=== PATIENT | male | born 1980 | race Caucasian/White ===

== ENCOUNTER 2016-09-29 14:27 | Emergency (ER) | payer SELFPAY ==
[~2016-09-29] VITALS: Ht 177.8 cm; Wt 81.5 kg
[~2016-09-29 14:27] MED LIST: DARV PO; Z.0.NO CURRENT MEDS
[2016-09-29 14:29] VITALS: BP 128/87; PULSE 80; RESP 16; TEMP 98.5; O2SAT 97
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
[2016-09-29] MEDS ORDERED: oxyCODONE/ACETAMINOPHEN 5 MG/325 MG TAB PO ONE (15:45)
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
[2016-09-29] MEDS ORDERED: PERC5TAB12 PO (16:41)
[2016-09-29] MEDS ORDERED: IBUP800T23 PO (16:43)
[2016-09-29 17:17] VITALS: RESP 16
== END 2016-09-29 17:31 | disposition home or self-care (01) ==
LOC: NEPB 14:27
DX: S69.91XA Unspecified injury of right wrist, hand and finger(s), initial encounter (principal); F17.210 Nicotine dependence, cigarettes, uncomplicated; W22.8XXA Striking against or struck by other objects, initial encounter; Y93.55 Activity, bike riding; Y99.9 Unspecified external cause status
CPT/HCPCS: 73130; 99283

== ENCOUNTER 2017-05-17 13:37 | Emergency (ER) | payer SELFPAY ==
[~2017-05-17] VITALS: Ht 172.7 cm; Wt 79.5 kg
[~2017-05-17 13:37] MED LIST changes: -DARV PO; +IBUP800T23 PO; +PERC5TAB12 PO; -Z.0.NO CURRENT MEDS
[2017-05-17 13:39] VITALS: BP 129/85; PULSE 79; RESP 15; TEMP 98.2; O2SAT 98
--- NOTE | 2017-05-17 13:59 | PD ---
HPI Chief Complaint: Injury Time Seen by Provider: 13:58 Travel History International Travel<30 days: No Contact w/Intl Traveler<30days: No Traveled to known affect area: No History of Present Illness HPI 37-year-old male presents to the emergency department with complaint of left ankle pain 2 days after injuring it while skateboarding. He thought it was sprained and sees been elevating it, icing it, taking ibuprofen for symptom management. He even tried taking a warm Epson salt bath. Denies paresthesias, loss of sensation to the affected extremity. Reports swelling and bruising to the ankle and foot. Symptoms are moderate in severity. Has no other medical complaints. No other modifying factors or associated signs and symptoms. PFSH Past Medical History Blood Disorders: No Heart Rhythm Problems: Yes ("fast heart") Cancer: No Cardiovascular Problems: Yes Endocrine: No Immune Disorder: No Musculoskeletal: No Neurologic: No Psychiatric: No Respiratory: No Social History Alcohol Use: Yes (OCCASIONALLY) Tobacco Use: Yes (10 CIGS A DAY FOR SEVERAL MONTHS) Substance Use: Yes (pt stated marijuana & did not comment regarding cocaine) Allergies-Medications (Allergen,Severity, Reaction): Coded Allergies: No Known Allergies (Verified , 05/17/17) Reported Meds & Prescriptions Reported Meds & Active Scripts Active Ibuprofen 800 Mg Tab 800 Mg PO Q6HR PRN Percocet (Oxycodone-Acetaminophen) 5-325 mg Tab 1-2 Tab PO Q6H PRN Review of Systems Except as stated in HPI: all other systems reviewed are Neg Physical Exam Narrative GENERAL: Well-nourished, well-developed male patient, in no acute distress SKIN: Warm and dry. HEAD: Atraumatic. Normocephalic. EYES: Pupils equal and round. No scleral icterus. No injection or drainage. ENT: Mucosa pink and moist. Airway patent. NECK: Trachea midline. CARDIOVASCULAR: Regular rate. RESPIRATORY: No accessory muscle use. GASTROINTESTINAL: Flat. MUSCULOSKELETAL: Left ankle with point tenderness to the lateral and medial malleolar zone with palpation; with edema and ecchymosis; no obvious deformities. Dorsal sole aspect of left foot is with ecchymosis; 2+ pedal pulse ; sensory intact. Left Lower extremity is supple and nontense with 2+ pedal pulse and sensory intact. No obvious deformities. No clubbing. No cyanosis. NEUROLOGICAL: Awake and alert. Oriented 3. No obvious cranial nerve deficits. Motor grossly within normal limits. Normal speech. PSYCHIATRIC: Appropriate mood and affect; insight and judgment normal. Data Data Last Documented VS Vital Signs Date Time Temp Pulse Resp B/P (MAP) Pulse Ox O2 Delivery O2 Flow Rate FiO2 05/17/17 13:39 98.2 79 15 129/85 (100) 98 Orders Orders Ankle, Complete ([id number]) (05/17/17 13:57) Foot, Complete ([id number]) (05/17/17 13:57) Crutches (05/17/17 13:57) Ibuprofen (Motrin) (05/17/17 14:00) MDM Medical Decision Making Medical Screen Exam Complete: Yes Emergency Medical Condition: Yes Medical Record Reviewed: Yes Differential Diagnosis Fracture, sprain, contusion Narrative Course 37-year-old male with left ankle injury. Left foot has extensive ecchymosis to the dorsal aspects I will obtain an x-ray to rule out acute findings of that also. Ibuprofen administered in the ER. Left foot and ankle x-ray ordered. 1508: Left ankle x-ray concludes: Minimally displaced spiral fracture of the distal fibula. 1520: Left foot x-ray with no acute findings. Call placed to orthopedics. 1539: With Dr. Canales, orthopedic, and he recommended splint, crutches, nonweightbearing, RICE and to follow-up in his office in 1-2 weeks. Uribe splint placed. Crutches provided for support. Discussed care with patient and he verbalized understanding and agreement. Instructed patient to follow up with Dr. Canales or orthopedic of choice in 1-2 weeks. Mandatory outpatient referral placed for follow-up. Percocet and ibuprofen prescribed for home. Instructed patient to follow up with primary care provider. Patient verbalizes understanding and agreement with treatment plan. Patient is medically cleared and stable for discharge. Discussed reasons to return to the emergency department. Patient agrees with treatment plan. The patients vital signs are stable and the patient is stable for outpatient follow-up and treatment. Patient discharged home, stable and in no acute distress. Diagnosis Primary Impression: Ankle fracture, left Qualified Codes: S82.892A - Other fracture of left lower leg, initial encounter for closed fracture Referrals: Amador Canales MD Orthopaedic Surgeon Primary Care Physician Patient Instructions: Ankle Fracture (ED), Crutch Instructions (ED), General Instructions Departure Forms: Tests/Procedures, Work Release Special Instructions: Patient unable to work until cleared by orthopedics or PCP Additional Instructions: Tylenol or ibuprofen as directed and as needed for pain and inflammation Rest, ice, compress, and elevate extremity to decrease pain and inflammation Splint for support; do not remove splint until cleared by orthopedics Crutches for support; do not bear weight until you are cleared by orthopedics Avoid aggravating activity; increase activity as tolerated Follow-up with primary care provider Return to the emergency department immediately with worsening of symptoms Med/Other Pt SpecificInfo: Prescription(s) given Scripts Ibuprofen (Ibuprofen) 800 Mg Tab 800 MG PO Q6HR Y for PAIN, #40 TAB 0 Refills Prov: Ginger Richmond 05/17/17 Disposition: 01 DISCHARGE HOME Condition: Stable Ginger Richmond May 17, 2017 13:59
[2017-05-17] MEDS ORDERED: IBUPROFEN 800 MG TAB PO ONE (14:00)
--- NOTE | 2017-05-17 15:05 | RADRPT ---
EXAM DATE/TIME: 05/17/2017 14:39 [facility] COMPARISON: No previous studies available for comparison. INDICATIONS : Hurt while on a skateboard. MEDICAL HISTORY : None. SURGICAL HISTORY : None. ENCOUNTER: Initial ACUITY: 2 days PAIN SCORE: 9/10 LOCATION: Left ankle FINDINGS: Minimally displaced spiral fracture seen of the distal fibula. There is associated soft tissue swelli ng. No subluxations or widening of the ankle mortise. The distal tibia is intact. CONCLUSION: Minimally displaced spiral fracture of the distal fibula. Krishna Hurtado MD on May 17, 2017 at 15:02 Board Certified Radiologist. This report was verified electronically.
--- NOTE | 2017-05-17 15:05 | RADRPT ---
EXAM DATE/TIME: 05/17/2017 14:42 [facility] COMPARISON: No previous studies available for comparison. INDICATIONS : Hurt on a skateboard MEDICAL HISTORY : None. SURGICAL HISTORY : None. ENCOUNTER: Initial ACUITY: 2 days PAIN SCORE: 9/10 LOCATION: Left foot FINDINGS: Diffuse soft tissue swelling is present. There is no evidence of acute fracture. Bony mineralization is normal. CONCLUSION: 1. There is no evidence of acute fracture. Janak Martinez MD on May 17, 2017 at 15:03 Board Certified Radiologist. This report was verified electronically.
[2017-05-17] MEDS ORDERED: IBUP800T23 PO (15:43)
[2017-05-17] MEDS ORDERED: PERC5TAB12 PO (15:45)
[2017-05-17] MEDS ORDERED: oxyCODONE/ACETAMINOPHEN 5 MG/325 MG TAB PO ONE (16:00)
[2017-05-17 16:10] VITALS: RESP 16
== END 2017-05-17 16:41 | disposition home or self-care (01) ==
LOC: NEPK 13:37
DX: S82.832A Other fracture of upper and lower end of left fibula, initial encounter for closed fracture (principal); F17.210 Nicotine dependence, cigarettes, uncomplicated; Y93.51 Activity, roller skating (inline) and skateboarding
CPT/HCPCS: 29515; 73610; 73630; 99283; E0113

== ENCOUNTER 2017-11-15 14:44 | Emergency (ER) | payer SELFPAY ==
[~2017-11-15 14:44] MED LIST changes: +IBUP1TAB7 PO; -IBUP800T23 PO
[2017-11-15 15:17] VITALS: BP 143/80; PULSE 82; RESP 14; TEMP 98.5; O2SAT 98
--- NOTE | 2017-11-15 15:48 | RADRPT ---
EXAM DATE/TIME: 11/15/2017 15:33 [facility] COMPARISON: FOOT LEFT COMPLETE ([id number]), May 17, 2017, 14:42. INDICATIONS : Left heel pain. Patient landed wrong on foot. MEDICAL HISTORY : None. SURGICAL HISTORY : None. ENCOUNTER: Initial ACUITY: 2 days PAIN SCORE: 10/10 LOCATION: Left foot. FINDINGS: Three view examination of the left foot demonstrates no soft tissue swelling, dislocation, or fractur e. The tarsal bones appear intact. The interphalangeal and metatarsophalangeal joints are intact. The calcaneus is intact. Bony mineralization is normal. CONCLUSION: Unremarkable examination of the left foot. Satya Salcedo Jr., MD on November 15, 2017 at 15:45 Board Certified Radiologist. This report was verified electronically.
--- NOTE | 2017-11-15 18:56 | PD ---
HPI Chief Complaint: Injury Time Seen by Provider: 18:36 Travel History International Travel<30 days: No Contact w/Intl Traveler<30days: No Traveled to known affect area: No History of Present Illness HPI Patient comes emergency department complaining of left heel pain that began yesterday after a skateboard accident. Patient states that he hit a curb on a skateboard causing him to fall forward coming down hard on his left foot causing the pain. Patient states initially did not feel the pain until later on when the pain began coming on and got worse today. Patient describes pain as a aching burning pain in his left heel is worse with walking. Patient points to his medial malleolus stating that is where most of the pain is. Patient denies doing anything for this. Denies anything making symptoms better. PFSH Past Medical History Blood Disorders: No Heart Rhythm Problems: Yes ("fast heart") Cancer: No Cardiovascular Problems: Yes Diminished Hearing: No Endocrine: No Gastrointestinal Disorders: No Immune Disorder: No Implanted Vascular Access Dvce: No Musculoskeletal: No Neurologic: No Psychiatric: No Respiratory: No Past Surgical History Other Surgery: No Social History Alcohol Use: Yes (OCCASIONALLY) Tobacco Use: Yes (5 CIGS A DAY FOR SEVERAL MONTHS) Substance Use: No (DENIES) Allergies-Medications (Allergen,Severity, Reaction): Coded Allergies: No Known Allergies (Verified , 05/17/17) Reported Meds & Prescriptions Reported Meds & Active Scripts Active Pingree (Hydrocodone-Acetaminophen) 5 Mg-325 Mg Tab 1 Tab PO Q6H PRN Naprosyn (Naproxen) 500 Mg Tab 500 Mg PO Q12HR PRN Percocet (Oxycodone-Acetaminophen) 5-325 mg Tab 1-2 Tab PO Q4-6H PRN Ibuprofen 800 Mg Tab 800 Mg PO Q6HR PRN Ibuprofen 800 Mg Tab 800 Mg PO Q6HR PRN Percocet (Oxycodone-Acetaminophen) 5-325 mg Tab 1-2 Tab PO Q6H PRN Review of Systems Except as stated in HPI: all other systems reviewed are Neg Physical Exam Narrative GENERAL: Well-developed, well nourished, in no acute distress, and non-ill appearing. SKIN: Focused skin assessment warm and dry. HEAD: Atraumatic. Normocephalic. EYES: Pupils equal and round. EOMI. No scleral icterus. No injection or drainage. ENT: No nasal bleeding or discharge. Mucous membranes pink and moist. NECK: Trachea midline. Supple. No nuclear rigidity. CARDIOVASCULAR: Dorsal pulses 2+, intact, and equal bilaterally. Capillary refill less than 2 seconds. RESPIRATORY: No accessory muscle use. No respiratory distress. MUSCULOSKELETAL: No obvious deformities. No clubbing. No cyanosis. No edema. Full range of motion. Ankle: Neagative anterior draw and Carter test. Negative Shana's sign. No laxity noted with passive inversion and eversion of BL ankles. Negative squeeze test. Pulses equal BL distal to injury. Capillary refill less than 2 seconds distal to injury and equal BL. Sensation equal BL 1st web space. FROM of toes distal to injury and equal BL. NV intact distal to injury and equal BL. Dorsal pulses equal BL. Trace soft tissue swelling noted over the medial aspect of the left ankle. No crepitus. Patient reports point tenderness over medial aspect of left ankle. NEUROLOGICAL: Awake and alert. No obvious cranial nerve deficits. Motor grossly within normal limits. Normal speech. PSYCHIATRIC: Appropriate mood and affect; insight and judgment normal. Data Data Last Documented VS Vital Signs Date Time Temp Pulse Resp B/P (MAP) Pulse Ox O2 Delivery O2 Flow Rate FiO2 11/15/17 20:13 16 11/15/17 15:17 98.5 82 143/80 (101) 98 Orders Orders Foot, Complete ([id number]) (11/15/17 ) Ketorolac Inj (Toradol Inj) (11/15/17 19:00) Ct Foot W/O Contrast (11/15/17 ) Splint Or Brace Apply/Monitor (11/15/17 20:27) Ed Discharge Order (11/15/17 20:34) Fiberglass Short Leg Splint Ad (11/15/17 ) Fiberglass Sugartong Sp Ad Sl (11/15/17 ) MDM Medical Decision Making Medical Screen Exam Complete: Yes Emergency Medical Condition: Yes Interpretation(s) Last Impressions Lower Extremity CT 11/15/17 0000 Signed Impressions: Service Date/Time: Wednesday, November 15, 2017 19:33 - CONCLUSION: 1. No evidence of calcaneal fracture. 2. Spiral comminuted fracture of the distal fibula. Satya Boothe MD Foot X-Ray 11/15/17 0000 Signed Impressions: Service Date/Time: Wednesday, November 15, 2017 15:33 - CONCLUSION: Unremarkable examination of the left foot. Satya Salcedo Jr., MD Differential Diagnosis Fracture, sprain, contusion, dislocation Narrative Course The patient sustained a fracture. The distal extremity appears neurovascularly intact, without evidence of neurovascular injury nor compartment syndrome. Tendon exam also was intact. The effected limb was splinted. The patient was discharged on pain medication along with fracture and splint care instructions and given warnings for vascular compromise. The patient is to follow up with Orthopedics. Patient reports he sees Dr. Canales. The patient agrees with plan. Patient in no obvious distress upon re-evaluation. All pertinent Radiology result(s) discussed with patient. Discussed patient with Dr. Malin prior to discharge, who is in agreement with plan of care and disposition. Patient was asked if they wanted to speak to my attending, which the patient did not wish to do at this time. Any questions/concerns in reference to patient diagnosis/ condition discussed and clarified prior to patient's discharge. Reinforced sheer importance of close follow up with patient's primary physician or primary care clinic. Instructed patient to return to ED immediately, if symptoms return/ worsen. Patient showed understanding of above instructions. Further instructions and recommendations were detailed in discharge paperwork. Patient ambulated without difficulty out of ED at discharge with crutches. Diagnosis Primary Impression: Fibula fracture Qualified Codes: S82.832A - Other fracture of upper and lower end of left fibula, initial encounter for closed fracture Patient Instructions: Ankle Fracture (ED), Crutch Instructions (ED), General Instructions, Splint Care (ED) Additional Instructions: Follow-up with your orthopedic doctor this week for reevaluation. Take all medication as prescribed. Apply ice to affected area 20 min/h as needed for pain. Elevate affected limb to decrease pain. Do not put weight on her left foot until reevaluated by orthopedic. Return to the emergency department if symptoms get worse. Med/Other Pt SpecificInfo: Prescription(s) given Scripts Hydrocodone-Acetaminophen (Pingree) 5 Mg-325 Mg Tab 1 TAB PO Q6H Y for PAIN, #7 TAB 0 Refills Prov: Holden Malin MD 11/15/17 Naproxen (Naprosyn) 500 Mg Tab 500 MG PO Q12HR Y for PAIN SCALE 1 TO 10, #14 TAB 0 Refills Prov: Holden Malin MD 11/15/17 Disposition: 01 DISCHARGE HOME Condition: Stable Kwaku Burroughs Nov 15, 2017 18:56
[2017-11-15] MEDS ORDERED: KETOROLAC TROMETHAMINE 60 MG/2 ML (IM) VIAL IM ONE (19:00)
--- NOTE | 2017-11-15 20:10 | RADRPT ---
EXAM DATE/TIME: 11/15/2017 19:33 [facility] COMPARISON: ANKLE LEFT COMPLETE ([id number]), May 17, 2017, 14:39. FOOT LEFT COMPLETE ([id number]), May, 14:42. FOOT LEFT COMPLETE ([id number]), November 15, 2017, 15:33. INDICATIONS : Left heel injury yesterday. RADIATION DOSE: 9.19 CTDIvol (mGy) MEDICAL HISTORY : Cardiovascular disease. SURGICAL HISTORY : None. ENCOUNTER: Initial ACUITY: 1 day PAIN SCALE: 5/10 LOCATION: Left heel TECHNIQUE: Volumetric scanning of the foot was performed. Using automated exposure control and adjustment of th e mA and/or kV according to patient size, radiation dose was kept as low as reasonably achievable to obtain optimal diagnostic quality images. DICOM format image data is available electronically for re view and comparison. FINDINGS: Osseous structures of the forefoot and midfoot are intact. The calcaneus has a normal configuration without evidence of fracture. The talonavicular joint is intact. There is a spiral fracture of the distal fibula with some posterior bridging callus and 2 small displaced fragments anteriorly. CONCLUSION: 1. No evidence of calcaneal fracture. 2. Spiral comminuted fracture of the distal fibula. Satya Boothe MD on November 15, 2017 at 20:05 Board Certified Radiologist. This report was verified electronically.
[2017-11-15 20:13] VITALS: RESP 16
[2017-11-15] MEDS ORDERED: NORC5TAB PO (20:35)
[2017-11-15] MEDS ORDERED: NAPR500 PO (20:35)
== END 2017-11-15 21:01 | disposition home or self-care (01) ==
LOC: NEPK 14:44
DX: S82.832A Other fracture of upper and lower end of left fibula, initial encounter for closed fracture (principal); V00.131A Fall from skateboard, initial encounter; Y93.51 Activity, roller skating (inline) and skateboarding
CPT/HCPCS: 29515; 73630; 73700; 96372; 99284; E0113; J1885